=== PATIENT | female | born 1940 | race Caucasian/White ===

== ENCOUNTER → 2020-06-01 | Outpatient (CLI) | payer MEDICARE, OTHER | END | disposition home or self-care (01) | LOC: STAR 14:33 | PROVIDERS: ATTEND Ophthalmology | DX: Z01.89 Encounter for other specified special examinations (principal); R79.1 Abnormal coagulation profile; I44.0 Atrioventricular block, first degree; I25.2 Old myocardial infarction | CPT/HCPCS: 93005 ==